=== PATIENT | male | born 1970 | race Caucasian/White ===

== ENCOUNTER 2019-11-30 09:09 | Inpatient (IN) | payer MEDICAID ==
[~2019-11-30] VITALS: Ht 165.1 cm; Wt 85.4 kg
[~2019-11-30 09:09] MED LIST: ALBU17AE16 IH; ALBU8.5H3 IH; AZIT250T9 PO; FLUT1DIS3 IH; IPRAHFA IH; LISI-662 PO
[2019-11-30] MEDS ORDERED: METF-960 PO (09:26)
[2019-11-30] MEDS ORDERED: ATOR10TA84 PO (09:26)
[2019-11-30] MEDS ORDERED: GuaiFENesin/D-METHORPHAN [SUGAR-FREE] 200-20MG/10 ML SYRUP UDCUP PO ONE (10:15)
[2019-11-30] MEDS ORDERED: IPRATROPIUM BROMIDE 0.5 MG/2.5 ML NEB SOLUTION NEB ONE (10:15)
[2019-11-30] MEDS ORDERED: ACETAMINOPHEN 500 MG TABLET PO ONE (10:15)
[2019-11-30] MEDS ORDERED: MethylPREDNISolone SOD SUCC 125 MG/2 ML VIAL IVP ONE (10:15)
[2019-11-30] MEDS ORDERED: ALBUTEROL SULFATE 5 MG/ML 20 ML NEB SOLN [BULK] NEB ONE (10:15)
[2019-11-30] MEDS ORDERED: 0.9% SODIUM CHLORIDE 15 ML NEB SOLUTION NEB ONE (10:19)
[2019-11-30] MEDS: OXYGEN THERAPY IH SCH ×2 (10:22→21:26)
[2019-11-30 10:49] LABS: BASOPHILS % (AUTO) 0.8 % (0.0-2.0); EOSINOPHILS % (AUTO) 11.2 % (1.0-6.0); HEMATOCRIT 43.6 % (41-53); HEMOGLOBIN 14.5 g/dL (13.5-17.5); LYMPHOCYTES # (AUTO) 1.7 K/uL (1.0-4.8); LYMPHOCYTES % (AUTO) 17.1 % (22.0-44.0); MEAN CORPUSCULAR HEMOGLOBIN 29.2 pg (26.0-34.0); MEAN CORPUSCULAR HGB CONC 33.3 G/dL (31.0-37.0); MEAN CORPUSCULAR VOLUME 88 fL (80-100); MONOCYTES # (AUTO) 0.5 K/uL (0.1-1.0); MONOCYTES % (AUTO) 5.1 % (2.0-9.0); NEUTROPHILS # (AUTO) 6.4 K/uL (1.8-7.7); NEUTROPHILS % (AUTO) 65.8 % (40.0-70.0); PLATELET COUNT (AUTO) 349 K/uL (150-450); RED BLOOD CELL COUNT(AUTO) 4.98 MIL/uL (4.50-5.90); RED CELL DISTRIBUTION WIDTH 16.8 % (11.5-14.5)
[2019-11-30 11:02] LABS: ANION GAP 11 mmol/L (8-16); CALCIUM, TOTAL 9.4 mg/dL (8.8-10.5); CARBON DIOXIDE 28 mmol/L (22-29); CHLORIDE 101 mmol/L (98-107); CREATININE 0.68 mg/dL (0.60-1.30); GLOMERULAR FILTR. RATE CALC > 60 mL/min (>60); GLUCOSE,RANDOM 124 mg/dL (70-110); SODIUM SERUM 140 mmol/L (136-145); UREA NITROGEN, BLOOD 12 mg/dL (7-18)
[2019-11-30 11:16] LABS: ALANINE AMINOTRANSFERASE 42 U/L (12-78); ALBUMIN 4.1 g/dL (3.4-5.0); ALKALINE PHOSPHATASE 87 U/L (46-116); ASPARTATE AMINOTRANSFERASE 30 U/L (15-37); BILIRUBIN,TOTAL 0.5 mg/dL (0.1-1.0)
[2019-11-30 11:17] LABS: B-TYPE NATRIURETIC PEPTIDE 60 pg/mL (0-100)
[2019-11-30 11:29] LABS: INFLUENZA TYPE A NEGATIVE FOR TYPE A (NEGATIVE); INFLUENZA TYPE B NEGATIVE FOR TYPE B (NEGATIVE)
[2019-11-30] MEDS ORDERED: ATOR40TA28 PO (11:57)
[2019-11-30] MEDS ORDERED: ADV250 IH (11:57)
[2019-11-30] MEDS ORDERED: ALBU8HFA IH (11:57)
[2019-11-30] MEDS ORDERED: ASPIRIN 325 MG TABLET PO ONE (12:00)
[2019-11-30] MEDS ORDERED: NITROGLYCERIN 2% (1 GM=INCH) PACKET TP ONE (12:00)
[2019-11-30] MEDS ORDERED: 0.9% SODIUM CHLORIDE 10 ML SYRINGE IVP PRN (13:00)
[2019-11-30] MEDS ORDERED: ONDANSETRON HCL 4 MG/2 ML VIAL IVP PRN ×2 (13:00→16:15)
[2019-11-30] MEDS ORDERED: ACETAMINOPHEN 325 MG TABLET PO PRN ×2 (13:00→16:15)
[2019-11-30 13:59] VITALS: BP 141/94
[2019-11-30] MEDS ORDERED: IPRATROPIUM BROMIDE 0.5 MG/2.5 ML NEB SOLUTION NEB SCH (15:00)
[2019-11-30] MEDS ORDERED: ALBUTEROL SULFATE 2.5 MG/0.5 ML NEB SOLUTION NEB SCH (15:00)
[2019-11-30 15:48] VITALS: BP 135/77
[2019-11-30] MEDS ORDERED: MAGNESIUM HYDROXIDE SUSPENSION 30 ML UDCUP PO PRN (16:15)
[2019-11-30] MEDS ORDERED: HYDROCODONE/ACETAMINOPHEN 5-325 MG TABLET PO PRN (16:15)
[2019-11-30] MEDS ORDERED: IPRATROPIUM BROMIDE 0.5 MG/2.5 ML NEB SOLUTION NEB PRN (16:15)
[2019-11-30] MEDS ORDERED: BISACODYL 10 MG RECTAL RECTAL SUPPOSITORY PR PRN (16:15)
[2019-11-30] MEDS ORDERED: MORPHINE SULFATE 2 MG/ML SYRINGE IVP PRN (16:15)
[2019-11-30] MEDS ORDERED: ZOLPIDEM TARTRATE 5 MG TABLET PO PRN (16:15)
[2019-11-30] MEDS ORDERED: ALBUTEROL SULFATE 2.5 MG/0.5 ML NEB SOLUTION NEB PRN (16:15)
[2019-11-30] MEDS ORDERED: SODIUM CHLORIDE 0.9% 100 ML ONE (16:43)
[2019-11-30] MEDS: CefTRIAXone 1 GM/DEXTROSE 50 ML IV SCH (17:29)
[2019-11-30] MEDS: MethylPREDNISolone SOD SUCC 125 MG/2 ML VIAL IVP SCH ×2 (17:32→23:21)
[2019-11-30] MEDS: ATORVASTATIN CALCIUM 40 MG TABLET PO SCH (20:02)
[2019-11-30] MEDS: BENZONATATE 100 MG CAPSULE PO SCH (20:03)
[2019-11-30] MEDS: GuaiFENesin SR 600 MG ER TABLET PO SCH (20:03)
[2019-11-30] MEDS: DOCUSATE SODIUM 100 MG CAPSULE PO SCH (20:03)
[2019-11-30 20:13] VITALS: BP 135/75
[2019-11-30] MEDS: ALBUTEROL SULFATE 2.5 MG/0.5 ML NEB SOLUTION NEB SCH ×2 (21:26→23:28)
[2019-11-30] MEDS: IPRATROPIUM BROMIDE 0.5 MG/2.5 ML NEB SOLUTION NEB SCH ×2 (21:26→23:28)
[2019-11-30] MEDS: HEPARIN SODIUM,PORCINE 5,000 UNITS/ML VIAL SQ SCH (23:21)
[2019-12-01] VITALS (8 sets, daily range): BP systolic 118–156; BP diastolic 72–93
[2019-12-01] MEDS: MethylPREDNISolone SOD SUCC 125 MG/2 ML VIAL IVP SCH ×3 (05:50→18:01)
[2019-12-01] MEDS: ALBUTEROL SULFATE 2.5 MG/0.5 ML NEB SOLUTION NEB SCH ×3 (08:21→19:42)
[2019-12-01] MEDS: IPRATROPIUM BROMIDE 0.5 MG/2.5 ML NEB SOLUTION NEB SCH ×3 (08:21→19:42)
[2019-12-01] MEDS: GuaiFENesin SR 600 MG ER TABLET PO SCH ×2 (09:44→20:21)
[2019-12-01] MEDS: MetFORMIN HCL 500 MG TABLET PO SCH (09:44)
[2019-12-01] MEDS: DOCUSATE SODIUM 100 MG CAPSULE PO SCH ×2 (09:44→20:21)
[2019-12-01] MEDS: PANTOPRAZOLE SODIUM 40 MG DR TABLET PO SCH (09:44)
[2019-12-01] MEDS: LISINOPRIL 20 MG TABLET PO SCH (09:44)
[2019-12-01] MEDS: BENZONATATE 100 MG CAPSULE PO SCH ×3 (09:44→20:21)
[2019-12-01] MEDS: HEPARIN SODIUM,PORCINE 5,000 UNITS/ML VIAL SQ SCH ×2 (09:45→15:48)
[2019-12-01] MEDS: CefTRIAXone 1 GM/DEXTROSE 50 ML IV SCH (19:15)
[2019-12-01] MEDS: ATORVASTATIN CALCIUM 40 MG TABLET PO SCH (20:21)
[2019-12-02] VITALS (8 sets, daily range): BP systolic 124–166; BP diastolic 68–98
[2019-12-02] MEDS: MethylPREDNISolone SOD SUCC 125 MG/2 ML VIAL IVP SCH ×4 (00:38→18:35)
[2019-12-02] MEDS: ALBUTEROL SULFATE 2.5 MG/0.5 ML NEB SOLUTION NEB SCH ×4 (01:01→20:01)
[2019-12-02] MEDS: IPRATROPIUM BROMIDE 0.5 MG/2.5 ML NEB SOLUTION NEB SCH ×4 (01:01→20:01)
[2019-12-02 06:53] LABS: BASOPHILS % (AUTO) 0.2 % (0.0-2.0); EOSINOPHILS % (AUTO) 0 % (1.0-6.0); HEMATOCRIT 40.8 % (41-53); HEMOGLOBIN 13.4 g/dL (13.5-17.5); LYMPHOCYTES # (AUTO) 0.6 K/uL (1.0-4.8); LYMPHOCYTES % (AUTO) 5.8 % (22.0-44.0); MEAN CORPUSCULAR HEMOGLOBIN 29.4 pg (26.0-34.0); MEAN CORPUSCULAR VOLUME 89 fL (80-100); MONOCYTES # (AUTO) 0.2 K/uL (0.1-1.0); MONOCYTES % (AUTO) 2.3 % (2.0-9.0); NEUTROPHILS # (AUTO) 9.1 K/uL (1.8-7.7); PLATELET COUNT (AUTO) 313 K/uL (150-450); RED BLOOD CELL COUNT(AUTO) 4.58 MIL/uL (4.50-5.90); RED CELL DISTRIBUTION WIDTH 16.8 % (11.5-14.5)
[2019-12-02 06:54] LABS: NEUTROPHILS % (AUTO) 91.7 % (40.0-70.0)
[2019-12-02 07:15] LABS: ANION GAP 9 mmol/L (8-16); CARBON DIOXIDE 27 mmol/L (22-29); CHLORIDE 102 mmol/L (98-107); CHOL/HDL RATIO 3.7 (4.2-7.3); CHOLESTEROL 263 mg/dL (131-200); CREATININE 0.69 mg/dL (0.60-1.30); GLOMERULAR FILTR. RATE CALC > 60 mL/min (>60); GLUCOSE,RANDOM 142 mg/dL (70-110); HDL CHOLESTEROL 72 mg/dL (40-60); LDL CHOL (CALC.) 176 mg/dL (0-130); SODIUM SERUM 138 mmol/L (136-145); TRIGLYCERIDES 74 mg/dL (15-150); UREA NITROGEN, BLOOD 23 mg/dL (7-18)
[2019-12-02] MEDS: MetFORMIN HCL 500 MG TABLET PO SCH (08:21)
[2019-12-02] MEDS: BENZONATATE 100 MG CAPSULE PO SCH ×3 (08:21→20:26)
[2019-12-02] MEDS: PANTOPRAZOLE SODIUM 40 MG DR TABLET PO SCH (08:22)
[2019-12-02] MEDS: GuaiFENesin SR 600 MG ER TABLET PO SCH ×2 (08:22→20:26)
[2019-12-02] MEDS: DOCUSATE SODIUM 100 MG CAPSULE PO SCH ×2 (08:22→20:27)
[2019-12-02] MEDS: LISINOPRIL 20 MG TABLET PO SCH (08:22)
[2019-12-02] MEDS: HEPARIN SODIUM,PORCINE 5,000 UNITS/ML VIAL SQ SCH ×3 (08:23→15:35)
[2019-12-02 08:27] LABS: GLUCOMETER DEV NAME(LOC) 5N.2; GLUCOSE,POINT OF CARE 135 MG/DL (70-110)
[2019-12-02] MEDS ORDERED: SESTAMIBI TC99M/UD ISOTOPE 1 EA INJ INJ ONE ×2 (08:55→12:25)
[2019-12-02] MEDS: CefTRIAXone 1 GM/DEXTROSE 50 ML IV SCH (18:35)
[2019-12-02] MEDS: ATORVASTATIN CALCIUM 40 MG TABLET PO SCH (20:26)
[2019-12-03] VITALS (14 sets, daily range): BP systolic 143–186; BP diastolic 63–104
[2019-12-03] MEDS: MethylPREDNISolone SOD SUCC 125 MG/2 ML VIAL IVP SCH ×3 (00:07→20:02)
[2019-12-03] MEDS ORDERED: SODIUM CHLORIDE 0.9% 250 ML IV ONE (01:48)
[2019-12-03] MEDS: ALBUTEROL SULFATE 2.5 MG/0.5 ML NEB SOLUTION NEB SCH ×4 (02:25→21:21)
[2019-12-03] MEDS: IPRATROPIUM BROMIDE 0.5 MG/2.5 ML NEB SOLUTION NEB SCH ×4 (02:25→21:21)
[2019-12-03 06:35] LABS: BASOPHILS % (AUTO) 0.3 % (0.0-2.0); EOSINOPHILS % (AUTO) 0.3 % (1.0-6.0); HEMATOCRIT 41.3 % (41-53); HEMOGLOBIN 13.5 g/dL (13.5-17.5); LYMPHOCYTES # (AUTO) 0.6 K/uL (1.0-4.8); LYMPHOCYTES % (AUTO) 6.6 % (22.0-44.0); MEAN CORPUSCULAR HEMOGLOBIN 29.1 pg (26.0-34.0); MEAN CORPUSCULAR HGB CONC 32.7 G/dL (31.0-37.0); MEAN CORPUSCULAR VOLUME 89 fL (80-100); MONOCYTES # (AUTO) 0.3 K/uL (0.1-1.0); MONOCYTES % (AUTO) 3.4 % (2.0-9.0); NEUTROPHILS # (AUTO) 8.2 K/uL (1.8-7.7); PLATELET COUNT (AUTO) 304 K/uL (150-450); RED BLOOD CELL COUNT(AUTO) 4.65 MIL/uL (4.50-5.90); RED CELL DISTRIBUTION WIDTH 16.7 % (11.5-14.5)
[2019-12-03 06:43] LABS: ANION GAP 7 mmol/L (8-16); CALCIUM, TOTAL 9.2 mg/dL (8.8-10.5); CARBON DIOXIDE 27 mmol/L (22-29); CHLORIDE 104 mmol/L (98-107); CREATININE 0.74 mg/dL (0.60-1.30); GLOMERULAR FILTR. RATE CALC > 60 mL/min (>60); GLUCOSE,RANDOM 152 mg/dL (70-110); POTASSIUM 3.8 mmol/L (3.5-5.1); SODIUM SERUM 138 mmol/L (136-145); UREA NITROGEN, BLOOD 22 mg/dL (7-18)
[2019-12-03] MEDS ORDERED: HEPARIN SODIUM 1000 UNITS/NS 1,000 ML ONE (07:08)
[2019-12-03] MEDS ORDERED: IOHEXOL 300 MG/ML 150 ML VIAL ONE (07:08)
[2019-12-03] MEDS ORDERED: LIDOCAINE/PF 1% 30 ML VIAL ONE (07:08)
[2019-12-03] MEDS ORDERED: SODIUM BICARBONATE 50 MEQ/50 ML VIAL ONE (07:08)
[2019-12-03 07:18] LABS: NEUTROPHILS % (AUTO) 89.4 % (40.0-70.0)
[2019-12-03] MEDS: HEPARIN SODIUM,PORCINE 5,000 UNITS/ML VIAL SQ SCH ×4 (08:00→23:30)
[2019-12-03] MEDS: MetFORMIN HCL 500 MG TABLET PO SCH (08:00)
[2019-12-03] MEDS: DOCUSATE SODIUM 100 MG CAPSULE PO SCH ×2 (08:11→20:03)
[2019-12-03] MEDS: LISINOPRIL 20 MG TABLET PO SCH (08:11)
[2019-12-03] MEDS: PANTOPRAZOLE SODIUM 40 MG DR TABLET PO SCH (08:11)
[2019-12-03] MEDS: BENZONATATE 100 MG CAPSULE PO SCH ×3 (08:11→20:02)
[2019-12-03] MEDS: GuaiFENesin SR 600 MG ER TABLET PO SCH ×2 (08:11→20:02)
[2019-12-03] MEDS ORDERED: NITROGLYCERIN 50 MG/D5% WATER 250 ML ONE (08:25)
[2019-12-03] MEDS ORDERED: VERAPAMIL HCL 2.5 MG/ML 2 ML VIAL ONE (08:25)
[2019-12-03] MEDS ORDERED: FentaNYL CITRATE-PF 100 MCG/2 ML VIAL ONE (08:28)
[2019-12-03] MEDS ORDERED: MIDAZOLAM HCL 2 MG/2 ML VIAL ONE (08:29)
[2019-12-03] MEDS ORDERED: HEPARIN SODIUM 1000 UNITS/NS 1,000 ML IARTER ONE (08:39)
[2019-12-03] MEDS ORDERED: SODIUM CHLORIDE 0.9% 500 ML IV ONE (08:39)
[2019-12-03] MEDS ORDERED: LIDOCAINE 1% 30 ML/SOD BICARB 8.4% 4 ML SQ ONE (08:45)
[2019-12-03] MEDS ORDERED: FentaNYL CITRATE-PF 100 MCG/2 ML VIAL IVP ONE (08:45)
[2019-12-03] MEDS ORDERED: IOHEXOL 300 MG/ML 150 ML VIAL IARTER ONE (08:45)
[2019-12-03] MEDS ORDERED: MIDAZOLAM HCL 2 MG/2 ML VIAL IVP ONE (08:45)
[2019-12-03] MEDS: CefTRIAXone 1 GM/DEXTROSE 50 ML IV SCH (17:09)
[2019-12-03] MEDS ORDERED: DOBUTamine HCL/D5W 500 MG/250 ML IV BAG [STRESS LAB ONLY] IV ONE (18:28)
[2019-12-03] MEDS: ATORVASTATIN CALCIUM 40 MG TABLET PO SCH (20:02)
[2019-12-04 00:58] VITALS: BP 146/92
[2019-12-04] MEDS: ALBUTEROL SULFATE 2.5 MG/0.5 ML NEB SOLUTION NEB SCH ×4 (02:46→19:38)
[2019-12-04] MEDS: IPRATROPIUM BROMIDE 0.5 MG/2.5 ML NEB SOLUTION NEB SCH ×4 (02:46→19:38)
[2019-12-04 07:33] VITALS: BP 164/101
[2019-12-04 07:45] LABS: BASOPHILS % (AUTO) 0.1 % (0.0-2.0); EOSINOPHILS % (AUTO) 0 % (1.0-6.0); HEMATOCRIT 42.1 % (41-53); HEMOGLOBIN 13.9 g/dL (13.5-17.5); LYMPHOCYTES # (AUTO) 1.6 K/uL (1.0-4.8); LYMPHOCYTES % (AUTO) 15.7 % (22.0-44.0); MEAN CORPUSCULAR HEMOGLOBIN 29.4 pg (26.0-34.0); MEAN CORPUSCULAR VOLUME 89 fL (80-100); MONOCYTES # (AUTO) 0.8 K/uL (0.1-1.0); MONOCYTES % (AUTO) 8.2 % (2.0-9.0); NEUTROPHILS # (AUTO) 7.6 K/uL (1.8-7.7); PLATELET COUNT (AUTO) 269 K/uL (150-450); RED BLOOD CELL COUNT(AUTO) 4.72 MIL/uL (4.50-5.90); RED CELL DISTRIBUTION WIDTH 16.4 % (11.5-14.5)
[2019-12-04 07:56] LABS: ANION GAP 8 mmol/L (8-16); CALCIUM, TOTAL 8.7 mg/dL (8.8-10.5); CARBON DIOXIDE 29 mmol/L (22-29); CHLORIDE 103 mmol/L (98-107); CREATININE 0.62 mg/dL (0.60-1.30); GLOMERULAR FILTR. RATE CALC > 60 mL/min (>60); GLUCOSE,RANDOM 108 mg/dL (70-110); POTASSIUM 3.8 mmol/L (3.5-5.1); SODIUM SERUM 140 mmol/L (136-145); UREA NITROGEN, BLOOD 21 mg/dL (7-18)
[2019-12-04] MEDS: MetFORMIN HCL 500 MG TABLET PO SCH (08:00)
[2019-12-04] MEDS: HEPARIN SODIUM,PORCINE 5,000 UNITS/ML VIAL SQ SCH ×3 (08:00→23:32)
[2019-12-04] MEDS: MethylPREDNISolone SOD SUCC 125 MG/2 ML VIAL IVP SCH ×2 (08:01→20:34)
[2019-12-04] MEDS: DOCUSATE SODIUM 100 MG CAPSULE PO SCH ×2 (08:01→20:31)
[2019-12-04] MEDS: GuaiFENesin SR 600 MG ER TABLET PO SCH ×2 (08:01→20:30)
[2019-12-04] MEDS: BENZONATATE 100 MG CAPSULE PO SCH ×3 (08:02→20:30)
[2019-12-04] MEDS: LISINOPRIL 20 MG TABLET PO SCH ×2 (08:02→20:31)
[2019-12-04] MEDS: PANTOPRAZOLE SODIUM 40 MG DR TABLET PO SCH (08:02)
[2019-12-04 11:05] VITALS: BP 150/82
[2019-12-04 15:59] VITALS: BP 128/72
[2019-12-04] MEDS ORDERED: SODIUM CHLORIDE 0.9% 100 ML ONE (17:04)
[2019-12-04] MEDS: CefTRIAXone 1 GM/DEXTROSE 50 ML IV SCH (17:10)
[2019-12-04 20:23] VITALS: BP 153/88
[2019-12-04] MEDS: ATORVASTATIN CALCIUM 40 MG TABLET PO SCH (20:31)
[2019-12-05] VITALS (13 sets, daily range): BP systolic 136–171; BP diastolic 86–114
[2019-12-05] MEDS: IPRATROPIUM BROMIDE 0.5 MG/2.5 ML NEB SOLUTION NEB SCH ×4 (02:40→20:01)
[2019-12-05] MEDS: ALBUTEROL SULFATE 2.5 MG/0.5 ML NEB SOLUTION NEB SCH ×4 (02:40→20:01)
[2019-12-05 07:44] LABS: BASOPHILS % (AUTO) 0.1 % (0.0-2.0); EOSINOPHILS % (AUTO) 0 % (1.0-6.0); HEMATOCRIT 43.7 % (41-53); HEMOGLOBIN 14.4 g/dL (13.5-17.5); LYMPHOCYTES # (AUTO) 1.4 K/uL (1.0-4.8); LYMPHOCYTES % (AUTO) 14.7 % (22.0-44.0); MEAN CORPUSCULAR HEMOGLOBIN 29.1 pg (26.0-34.0); MEAN CORPUSCULAR HGB CONC 33.1 G/dL (31.0-37.0); MEAN CORPUSCULAR VOLUME 88 fL (80-100); MONOCYTES # (AUTO) 0.7 K/uL (0.1-1.0); MONOCYTES % (AUTO) 7.9 % (2.0-9.0); NEUTROPHILS # (AUTO) 7.2 K/uL (1.8-7.7); NEUTROPHILS % (AUTO) 77.3 % (40.0-70.0); PLATELET COUNT (AUTO) 257 K/uL (150-450); RED BLOOD CELL COUNT(AUTO) 4.96 MIL/uL (4.50-5.90); RED CELL DISTRIBUTION WIDTH 16.5 % (11.5-14.5)
[2019-12-05] MEDS: HEPARIN SODIUM,PORCINE 5,000 UNITS/ML VIAL SQ SCH ×2 (07:45→15:42)
[2019-12-05] MEDS: LISINOPRIL 20 MG TABLET PO SCH ×2 (07:48→20:50)
[2019-12-05] MEDS: PANTOPRAZOLE SODIUM 40 MG DR TABLET PO SCH (07:48)
[2019-12-05] MEDS: MethylPREDNISolone SOD SUCC 125 MG/2 ML VIAL IVP SCH ×2 (07:48→20:49)
[2019-12-05] MEDS: BENZONATATE 100 MG CAPSULE PO SCH ×3 (07:48→20:49)
[2019-12-05] MEDS: MetFORMIN HCL 500 MG TABLET PO SCH (07:48)
[2019-12-05] MEDS: GuaiFENesin SR 600 MG ER TABLET PO SCH ×2 (07:48→20:49)
[2019-12-05] MEDS: DOCUSATE SODIUM 100 MG CAPSULE PO SCH ×2 (07:48→20:49)
[2019-12-05 07:58] LABS: ANION GAP 9 mmol/L (8-16); CALCIUM, TOTAL 8.7 mg/dL (8.8-10.5); CARBON DIOXIDE 28 mmol/L (22-29); CHLORIDE 103 mmol/L (98-107); CREATININE 0.59 mg/dL (0.60-1.30); GLOMERULAR FILTR. RATE CALC > 60 mL/min (>60); GLUCOSE,RANDOM 113 mg/dL (70-110); POTASSIUM 3.9 mmol/L (3.5-5.1); SODIUM SERUM 140 mmol/L (136-145); UREA NITROGEN, BLOOD 16 mg/dL (7-18)
[2019-12-05] MEDS ORDERED: HydrALAZINE HCL 50 MG TABLET PO SCH (14:00)
[2019-12-05] MEDS ORDERED: LISI-662 PO (14:01)
[2019-12-05] MEDS ORDERED: PANT40TA25 PO (14:02)
[2019-12-05] MEDS ORDERED: HYDR-2924 PO (15:54)
[2019-12-05] MEDS ORDERED: ME-P40KI PO (15:56)
[2019-12-05] MEDS ORDERED: MEDROL PO (16:01)
[2019-12-05] MEDS ORDERED: ACET-784 PO (16:03)
[2019-12-05] MEDS: CefTRIAXone 1 GM/DEXTROSE 50 ML IV SCH (17:10)
[2019-12-05] MEDS: ATORVASTATIN CALCIUM 40 MG TABLET PO SCH (20:49)
[2019-12-05] MEDS: HydrALAZINE HCL 50 MG TABLET PO SCH (20:50)
[2019-12-06] MEDS: ALBUTEROL SULFATE 2.5 MG/0.5 ML NEB SOLUTION NEB SCH ×3 (02:06→15:08)
[2019-12-06] MEDS: IPRATROPIUM BROMIDE 0.5 MG/2.5 ML NEB SOLUTION NEB SCH ×3 (02:06→15:08)
[2019-12-06 04:45] VITALS: BP 148/98
[2019-12-06 07:09] VITALS: BP 140/91
[2019-12-06] MEDS: MethylPREDNISolone SOD SUCC 125 MG/2 ML VIAL IVP SCH (07:57)
[2019-12-06] MEDS: DOCUSATE SODIUM 100 MG CAPSULE PO SCH (07:58)
[2019-12-06] MEDS: GuaiFENesin SR 600 MG ER TABLET PO SCH (07:58)
[2019-12-06] MEDS: BENZONATATE 100 MG CAPSULE PO SCH (07:58)
[2019-12-06] MEDS: HEPARIN SODIUM,PORCINE 5,000 UNITS/ML VIAL SQ SCH ×2 (07:58)
[2019-12-06] MEDS: LISINOPRIL 20 MG TABLET PO SCH (07:59)
[2019-12-06] MEDS: HydrALAZINE HCL 50 MG TABLET PO SCH ×2 (07:59→14:03)
[2019-12-06] MEDS: MetFORMIN HCL 500 MG TABLET PO SCH (07:59)
[2019-12-06] MEDS: PANTOPRAZOLE SODIUM 40 MG DR TABLET PO SCH (07:59)
[2019-12-06 11:00] VITALS: BP 133/96
== END 2019-12-06 15:30 | disposition home or self-care (01) | DRG 191 ==
LOC: EMS 09:11 → 5S 13:07
PROVIDERS: ADMIT Hospitalist; ATTEND Hospitalist
PROC: 4A02XM4 Measurement of Cardiac Total Activity, External Approach (ICD-10-PCS; 2019-12-02)
PROC: 3E073KZ Introduction of Other Diagnostic Substance into Coronary Artery, Percutaneous Approach (ICD-10-PCS; 2019-12-02)
PROC: 4A023N7 Measurement of Cardiac Sampling and Pressure, Left Heart, Percutaneous Approach (ICD-10-PCS; principal; 2019-12-03)
PROC: B2111ZZ Fluoroscopy of Multiple Coronary Arteries using Low Osmolar Contrast (ICD-10-PCS; 2019-12-03)
PROC: B2151ZZ Fluoroscopy of Left Heart using Low Osmolar Contrast (ICD-10-PCS; 2019-12-03)
DX: I24.9 Acute ischemic heart disease, unspecified (principal); J18.9 Pneumonia, unspecified organism; J44.0 Chronic obstructive pulmonary disease with (acute) lower respiratory infection; J45.901 Unspecified asthma with (acute) exacerbation; E11.9 Type 2 diabetes mellitus without complications; E78.5 Hyperlipidemia, unspecified; I10 Essential (primary) hypertension; E78.00 Pure hypercholesterolemia, unspecified; R06.03 Acute respiratory distress; R79.89 Other specified abnormal findings of blood chemistry; F17.210 Nicotine dependence, cigarettes, uncomplicated; J44.9 Chronic obstructive pulmonary disease, unspecified
CPT/HCPCS: 78452; 87040; 87804; 93005; 93017; 93306; 94060; 94640; 94644; 96374; 99291; A9500; J0696; J1250; J1644; J2250; J2930; J3010; J3490; J7050; Q9967

== ENCOUNTER 2021-03-04 17:28 | Emergency (ER) | payer MEDICAID ==
[~2021-03-04] VITALS: Ht 165.1 cm; Wt 87.7 kg
[~2021-03-04 17:28] MED LIST changes: +ACET-784 PO; -ALBU17AE16 IH; -ALBU8.5H3 IH; +ALBU8HFA IH; +AMLO-257 PO; +ATOR40TA28 PO; -AZIT250T9 PO; +BECL10.62 IH; -FLUT1DIS3 IH; -LISI-662 PO; +LISI-894 PO; +METF-960 PO; +PANT-31 PO
[2021-03-04] MEDS ORDERED: BISACODYL 10 MG RECTAL RECTAL SUPPOSITORY PR ONE (18:30)
[2021-03-04] MEDS ORDERED: POLYETHYLENE GLYCOL 3350 17 GM PACKET PO ONE (18:30)
[2021-03-04 19:05] VITALS: BP 109/74
== END 2021-03-04 19:02 | disposition home or self-care (01) ==
LOC: EMS 17:30
DX: K59.00 Constipation, unspecified (principal); J45.909 Unspecified asthma, uncomplicated; E11.9 Type 2 diabetes mellitus without complications; E78.00 Pure hypercholesterolemia, unspecified; I10 Essential (primary) hypertension; Z79.84 Long term (current) use of oral hypoglycemic drugs; Z79.899 Other long term (current) drug therapy
CPT/HCPCS: 74018; 82962; 99283

== ENCOUNTER 2021-03-19 15:01 | Emergency (ER) | payer MEDICAID ==
[~2021-03-19] VITALS: Ht 167.6 cm; Wt 79.5 kg
[2021-03-19] MEDS ORDERED: MONT10TA32 PO (16:07)
[2021-03-19] MEDS ORDERED: ALBUTEROL SULFATE 2.5 MG/0.5 ML NEB SOLUTION NEB ONE ×2 (16:15→19:41)
[2021-03-19] MEDS ORDERED: IPRATROPIUM BROMIDE 0.5 MG/2.5 ML NEB SOLUTION NEB ONE (16:15)
[2021-03-19] MEDS ORDERED: MethylPREDNISolone SOD SUCC 125 MG/2 ML VIAL IVP ONE (16:45)
[2021-03-19] MEDS ORDERED: MAGNESIUM SULFATE 4 GM/WATER 100 ML IV ONE (16:45)
[2021-03-19] MEDS ORDERED: 0.9% SODIUM CHLORIDE 5 ML NEB SOLUTION NEB ONE (20:23)
[2021-03-19 21:20] VITALS: BP 129/78
== END 2021-03-19 21:28 | disposition home or self-care (01) ==
LOC: EMS 15:05
DX: J45.901 Unspecified asthma with (acute) exacerbation (principal); E11.9 Type 2 diabetes mellitus without complications; E78.00 Pure hypercholesterolemia, unspecified; I10 Essential (primary) hypertension
CPT/HCPCS: 71045; 82962; 94640; 96365; 96366; 96375; 99291; J2930; J3475; J7613

== ENCOUNTER 2022-02-15 10:19 | Emergency (ER) | payer MEDICAID ==
[~2022-02-15] VITALS: Ht 160 cm; Wt 86.4 kg
[~2022-02-15 10:19] MED LIST changes: +METF-1211 PO; -METF-960 PO; +MONT-40 PO
[2022-02-15] MEDS ORDERED: PredniSONE 20 MG TABLET PO ONE (11:00)
[2022-02-15] MEDS ORDERED: IPRATROPIUM BROMIDE 0.5 MG/2.5 ML NEB SOLUTION NEB ONE (11:00)
[2022-02-15] MEDS ORDERED: ALBUTEROL SULFATE 2.5 MG/0.5 ML NEB SOLUTION NEB ONE ×2 (11:00→13:45)
[2022-02-15] MEDS ORDERED: PRED-554 PO (12:22)
[2022-02-15] MEDS ORDERED: ALBU8HFA IH (12:23)
[2022-02-15] MEDS ORDERED: AZIT250T9 PO (12:23)
[2022-02-15 14:28] VITALS: BP 160/86
== END 2022-02-15 15:06 | disposition home or self-care (01) ==
LOC: EMS 10:19
DX: J45.901 Unspecified asthma with (acute) exacerbation (principal); E11.9 Type 2 diabetes mellitus without complications; I10 Essential (primary) hypertension; F17.210 Nicotine dependence, cigarettes, uncomplicated; Z98.890 Other specified postprocedural states
CPT/HCPCS: 71046; 94640; 99285; J7512; 99284; J7613